=== PATIENT | male | born 1985 | race Caucasian/White ===

== ENCOUNTER 2017-04-25 13:55 | Emergency (ER) | payer OTHER ==
[2017-04-25] MEDS ORDERED: NS 1,000 ML IV ONE ×2 (15:51→16:01)
[2017-04-25] MEDS ORDERED: ONDANSETRON 4 MG/2 ML VIAL IVP ONE (15:51)
--- NOTE | 2017-04-25 15:54 | EDPHY ---
H & P Stated Complaint: nausea/vomit Time Seen by Provider: 04/25/17 15:53 - Medical/Surgical History Other PMH: denies. - Social History Smoking Status: Never smoked Constitutional: Initial Vital Signs Temperature (C) 36.8 C 04/25/17 14:05 Heart Rate 71 04/25/17 14:05 Respiratory Rate 18 04/25/17 14:05 Blood Pressure 129/80 H 04/25/17 14:05 O2 Sat (%) 92 04/25/17 14:05 O2 Delivery Mode Room Air Allergies/Adverse Reactions: No Known Allergies Allergy (Unverified 04/25/17 14:08) Medical Decision Making ED Course/Re-evaluation: CHIEF COMPLAINT: "I've been throwing up consistently for 5 days" HISTORY OF PRESENT ILLNESS: The patient is a 31 y/o male complaining of persistent nausea and vomiting for the last 5 days. Symptoms are much worse with food and fluid intake so he stopped eating and drinking with some reduction in vomiting over the last couple days. He continues to feel quite poor. He has some constipation. He denies cough, diarrhea, abdominal pain, fever , sore throat, dyspnea. He is normally healthy. Remote history of surgery for pyloric stenosis as an , no other abdominal surgeries. REVIEW OF SYSTEMS: A 10 point review of systems was performed and is negative with the exception of the elements mentioned in the history of present illness. PHYSICAL EXAM: HR, BP, O2 Sat, RR. Temp noted General Appearance: Alert, well hydrated, appropriate, and non-toxic appearing. Head: Atraumatic without scalp tenderness or obvious injury Eyes: Pupils equal, round, reactive to light and accommodation, EOMI, no trauma , no injection. Nose: Atraumatic, no rhinorrhea, clear. Throat: Mucus membranes moist. Neck: Supple Respiratory: No retractions, no distress, no wheezes, and no accessory muscle use. Lungs are clear to auscultation bilaterally. Cardiovascular: Regular rate and rhythm, no murmurs, rubs, or gallops. Good capillary refill all extremities. Gastrointestinal: Abdomen is soft, nontender, non-distended, no masses, no rebound, no guarding, no peritoneal signs. Musculoskeletal: Normal active ROM of all extremities, atraumatic. Neurological: Alert, appropriate, and interactive. The patient has non-focal cranial nerves, motor, sensory, and cerebellar exam. Skin: No rashes, good turgor, no nodules on palpation. Past medical history: Denies Past surgical history: Surgery for pyloric stenosis as an infant. Family history: Noncontributory Social history: Lives in [place]. Employed. DIFFERENTIAL DIAGNOSIS: The differential diagnosis for the patient's nausea and vomiting included but was not limited to gastroenteritis, gastritis, appendicitis, and medication side effect. MEDICAL DECISION MAKING: This is a normally healthy 31 y/o male who presents with a 5-day history of persistent nausea and vomiting without abdominal pain and aggravated by food/ fluid intake. His abdomen is benign so I have not recommended imaging at this time. Vitals stable. Presentation consistent with gastroenteritis. Plan for IV, labs, and symptom management then PO trial. 2L IV NS and 4mg IV Zofran administered. Patient is feeling improved and tolerated PO fluids after Zofran. Abdomen remains benign. He will be discharged home with standard gastroenteritis care and follow up instructions. He will receive a script for Zofran. Return precautions discussed. He is comfortable with this plan. - Data Points Laboratory Results: Laboratory Results 04/25/17 16:00 04/25/17 16:00 04/25/17 04/25/17 16:00 16:00 WBC 8.32 10^3/uL 10^3/uL (3.80-9.50) RBC 5.01 10^6/uL 10^6/uL (4.40-6.38) Hgb 17.0 g/dL g/dL (13.7-17.5) Hct 46.4 % % (40.0-51.0) MCV 92.6 fL fL (81.5-99.8) MCH 33.9 pg pg (27.9-34.1) MCHC 36.6 g/dL g/dL (32.4-36.7) RDW 11.7 % % (11.5-15.2) Plt Count 284 10^3/uL 10^3/uL (150-400) MPV 9.4 fL fL (8.7-11.7) Neut % (Auto) 67.7 % % (39.3-74.2) Lymph % (Auto) 23.6 % % (15.0-45.0) [place] % (Auto) 6.4 % % (4.5-13.0) Eos % (Auto) 1.7 % % (0.6-7.6) Baso % (Auto) 0.2 % L % (0.3-1.7) Nucleat RBC Rel Count 0.0 % % (0.0-0.2) Absolute Neuts (auto) 5.64 10^3/uL 10^3/uL (1.70-6.50) Absolute Lymphs (auto) 1.96 10^3/uL 10^3/uL (1.00-3.00) Absolute Monos (auto) 0.53 10^3/uL 10^3/uL (0.30-0.80) Absolute Eos (auto) 0.14 10^3/uL 10^3/uL (0.03-0.40) Absolute Basos (auto) 0.02 10^3/uL 10^3/uL (0.02-0.10) Absolute Nucleated RBC 0.00 10^3/uL 10^3/uL (0-0.01) Immature Gran % 0.4 % % (0.0-1.1) Immature Gran # 0.03 10^3/uL 10^3/uL (0.00-0.10) Sodium 141 mEq/L mEq/L (135-145) Potassium 4.3 mEq/L mEq/L (3.5-5.2) Chloride 105 mEq/L mEq/L (97-110) Carbon Dioxide 20 mEq/l L mEq/l (22-31) Anion Gap 16 mEq/L mEq/L (8-16) BUN 12 mg/dL mg/dL (7-23) Creatinine 1.0 mg/dL mg/dL (0.7-1.3) Estimated GFR > 60 Glucose 82 mg/dL mg/dL (70-100) Calcium 9.7 mg/dL mg/dL (8.5-10.4) Total Bilirubin 0.6 mg/dL mg/dL (0.1-1.4) Conjugated Bilirubin 0.3 mg/dL mg/dL (0.0-0.5) Unconjugated Bilirubin 0.3 mg/dL mg/dL (0.0-1.1) AST 34 IU/L IU/L (17-59) ALT 42 IU/L IU/L (21-72) Alkaline Phosphatase 69 IU/L IU/L (38-126) Total Protein 7.6 g/dL g/dL (6.3-8.2) Albumin 4.5 g/dL g/dL (3.5-5.0) Lipase 80 IU/L IU/L (23-300) Medications Given: Discontinued Medications Sodium Chloride (Ns) 1,000 mls @ 0 mls/hr IV ONCE ONE PRN Reason: Wide Open Stop: 04/25/17 15:52 Last Admin: 04/25/17 16:01 Dose: 1,000 mls Sodium Chloride (Ns) 1,000 mls @ 0 mls/hr IV EDNOW ONE; Wide Open PRN Reason: Protocol Stop: 04/25/17 16:02 Last Admin: 04/25/17 17:03 Dose: 1,000 mls Ondansetron HCl (Zofran) 4 mg IVP EDNOW ONE Stop: 04/25/17 15:52 Last Admin: 04/25/17 16:01 Dose: 4 mg Departure - Departure Disposition: Home, Routine, Self-Care Clinical Impression: Acute gastroenteritis Condition: Good Instructions: Gastroenteritis (ED), Acute Nausea and Vomiting (ED) Additional Instructions: 1. Take Zofran as prescribed for nausea and vomiting. 2. Increase fluid intake as tolerated. Slowly advance diet, start with clear fluids. 3. Follow up with your primary care provider for unimproved symptoms over the next 2-3 days. 4. Return to the ED for severe pain, uncontrollable vomiting, inability to have a bowel movement, or other worsening of condition. Referrals: Garrett Camarillo MD [Primary Care Provider] - As per Instructions Report Scribed for: Darryn Lopez Report Scribed by: Gayle Begum Date of Report: 04/25/17 Time of Report: 15:55
[2017-04-25 16:12] LABS: PLATELET COUNT 284 10^3/uL (150-400)
[2017-04-25 17:07] VITALS: RESP 16; TEMP 98.4; O2SAT 98
[2017-04-25 17:54] VITALS: BP 127/69; PULSE 72
== END 2017-04-25 17:54 | disposition home or self-care (01) ==
DX: K52.9 Noninfective gastroenteritis and colitis, unspecified (principal); E86.9 Volume depletion, unspecified
CPT/HCPCS: 96374; J2405

== ENCOUNTER → 2017-05-11 | Outpatient (CLI) | payer OTHER | LOC: FIMAGING 14:51 | PROVIDERS: ATTEND Family Medicine Sports Medicine | DX: M17.11 Unilateral primary osteoarthritis, right knee (principal); M25.542 Pain in joints of left hand ==

== ENCOUNTER → 2017-10-11 | Outpatient (CLI) | payer OTHER | LOC: GIMAGING 18:05 | PROVIDERS: ATTEND Nurse Practitioner Acute Care | DX: S69.92XA Unspecified injury of left wrist, hand and finger(s), initial encounter (principal); V19.9XXA Pedal cyclist (driver) (passenger) injured in unspecified traffic accident, initial encounter; Y93.55 Activity, bike riding | CPT/HCPCS: 73110-PO; 73130-PO ==